=== PATIENT | male | born 1970 | race Caucasian/White ===

== ENCOUNTER 2025-01-03 14:48 | Emergency (ER) | payer OTHER ==
[~2025-01-03] VITALS: Ht 170.2 cm; Wt 97.0 kg
[2025-01-03] MEDS ORDERED: LIPITOR40 MG PO (17:31)
[2025-01-03] MEDS ORDERED: TRIMETHOPRIM/SULFAMETHOXAZOLE 1 EA TAB PO ONE (18:00)
[2025-01-03] MEDS ORDERED: CEPHALEXIN MONOHYDRATE 500 MG CAP PO ONE (18:00)
[2025-01-03 18:09] LABS: BASOPHILS 1.2 % (0-2); EOSINOPHILS 6.7 % (0-6); HEMATOCRIT 44.3 % (35.0-50.0); HEMOGLOBIN 14.7 g/dL (12.0-18.0); LYMPHOCYTES 23.3 % (24-44); MCH 24.6 (27-36); MCHC 33.3 g/dl (30-36); MCV 73.9 fl (81-99); MONOCYTES 8.5 % (0-12); NEUTROPHILS 60.3 % (39-80); PLATELET COUNT 207 K/uL (140-440); RBC 5.99 M/ul (4.3-5.7); RDW 16.3 (10.5-15.0)
[2025-01-03 18:28] LABS: ALBUMIN 3.7 g/dL (3.4-5.0); ALBUMIN/GLOBULIN RATIO 1.03 (1.1-2.4); ANION GAP 10.4 (7-21); BILIRUBIN, TOTAL 0.9 mg/dL (0.2-1.0); BUN/CREATININE RATIO 17.75 (6.0-28.6); CALCIUM 8.5 mg/dL (8.5-10.1); CREATININE, SERUM 1.07 mg/dL (0.70-1.30); POTASSIUM 4.4 mmol/L (3.5-5.1); PROTEIN, TOTAL 7.3 g/dL (6.4-8.2)
[2025-01-03] MEDS ORDERED: CEPHALEXIN500 M1 PO (18:46)
[2025-01-03] MEDS ORDERED: BACTRIM DS TAB1 EACH PO (18:46)
[2025-01-03 19:03] VITALS: BP 115/92
== END 2025-01-03 19:03 | disposition other institution, planned readmission (95) ==
LOC: ED 14:48
PROVIDERS: Emergency Medicine
DX: H00.034 Abscess of left upper eyelid (principal); H00.035 Abscess of left lower eyelid
CPT/HCPCS: 36415; 80053; 83036; 85025; 99283; A9270